=== PATIENT | male | born 1990 | race Caucasian/White ===

== ENCOUNTER 2021-08-31 02:47 | Emergency (ER) | payer OTHER ==
[~2021-08-31] VITALS: Ht 172.7 cm; Wt 71.0 kg
[2021-08-31] MEDS ORDERED: ONDANSETRON 4MG ODT PO ONE (03:00)
[2021-08-31 03:37] LABS: HEMATOCRIT. 45.6 % (42.0-52.0); HEMOGLOBIN. 15.5 g/dL (14.0-18.0); MEAN CORPUSCULAR HEMOGLOBIN 29.8 pg (28.0-32.0); MEAN PLATELET VOLUME 7.3 fl (7.4-10.4); PLATELET 238 x1000/uL (130-400); RED BLOOD CELL COUNT 5.18 mill/uL (4.7-6.1); RED CELL DISTRIBUTION WIDTH 13.4 % (11.6-14.6)
[2021-08-31 03:49] LABS: CHLORIDE 102 mEq/L (98-107)
[2021-08-31 03:52] LABS: ETHANOL BLOOD < 10 mg/dL
[2021-08-31 06:37] VITALS: BP 114/77
[2021-08-31 07:12] LABS: PLATELET ESTIMATE NORMAL
== END 2021-08-31 06:46 | disposition home or self-care (01) ==
LOC: ER 02:47
DX: R11.2 Nausea with vomiting, unspecified (principal); R19.7 Diarrhea, unspecified; Z20.822 Contact with and (suspected) exposure to COVID-19
CPT/HCPCS: 29125; 36415; 73130; 80053; 80307; 80320; 80329; 83690; 85025; 87426; 99284; Q0162; G0480